=== PATIENT | male | born 1995 | race Caucasian/White ===

== ENCOUNTER 2018-08-17 07:05 | Day surgery (SDC) | payer OTHER ==
[~2018-08-17 07:05] MED LIST: BUPIVACAINE 0.5% (SDV) 30 ML, morphine SULFATE (PF) 8 MG, EPINEPHrine 0.3 MG, KETOROLAC... IRR; CEFAZOLIN 2 GM/50 ML (PMX) 50 ML IVPB; TRANEXAMIC ACID 1GM/100ML(PMX) 100 ML IVPB
[2018-08-17] MEDS: GABAPENTIN 300 MG CAP PO (07:55)
[2018-08-17] MEDS: DEXAMETHASONE 1 MG TAB PO (07:56)
[2018-08-17] MEDS ORDERED: LACTATED RINGER'S 1,000 ML IV (08:00)
[2018-08-17] MEDS ORDERED: MIDAZOLAM 1 MG/ML 2 ML INJ (09:26)
[2018-08-17] MEDS ORDERED: TRANEXAMIC ACID 1GM/100ML(PMX) 100 ML (10:07)
[2018-08-17] MEDS ORDERED: LIDOCAINE 2% (SDV) 5 ML INJ (10:45)
[2018-08-17] MEDS ORDERED: PROPOFOL 20 ML (10:45)
[2018-08-17] MEDS ORDERED: CEFAZOLIN 1 GM INJ (10:45)
[2018-08-17] MEDS ORDERED: ONDANSETRON 4 MG INJ (10:46)
[2018-08-17] MEDS ORDERED: KETOROLAC 30 MG INJ IV (11:30)
[2018-08-17] MEDS ORDERED: DIPHENHYDRAMINE 50 MG INJ IV (11:30)
[2018-08-17] MEDS ORDERED: ONDANSETRON 4 MG INJ IV (11:30)
[2018-08-17] MEDS ORDERED: FENTAnyl 50 MCG/ML VIAL IV (11:30)
[2018-08-17] MEDS ORDERED: MEPERIDINE 25 MG INJ IV (11:30)
[2018-08-17] MEDS ORDERED: HYDROmorphONE 1 MG/5 ML IV SYRINGE IV ×2 (11:30)
[2018-08-17] MEDS ORDERED: METOCLOPRAMIDE 10 MG INJ IV (11:30)
== END 2018-08-17 12:40 | disposition home or self-care (01) ==
LOC: SDS 07:05
DX: M25.812 Other specified joint disorders, left shoulder (principal); S73.192D Other sprain of left hip, subsequent encounter; X58.XXXD Exposure to other specified factors, subsequent encounter
CPT/HCPCS: 29914; 73530